=== PATIENT | male | born 1965 | race Hispanic/Latino ===

== ENCOUNTER 2017-08-26 20:38 | Emergency (ER) | payer SELFPAY ==
[2017-08-26 20:43] VITALS: TEMP 97.9
--- NOTE | 2017-08-26 21:02 | ED PDOC ---
HPI: Skin/Bite Injury Time Seen by Provider: 08/26/17 20:47 Chief Complaint (Nursing): Abnormal Skin Integrity Chief Complaint (Provider): rash History Per: Patient History/Exam Limitations: no limitations Onset/Duration Of Symptoms: Days (1 month), Waxing/Waning Current Symptoms Are (Timing): Still Present Quality Of Symptoms: Itching Additional Complaint(s): 52 y/o male here in police custody for evaluation of ongoing rash x 1 month. Patient notes rash to be present in back of neck, folds of elbows, lower abdomen and lower back; states he was evaluated by his primary doctor and given prednisone and antibiotics for dermatitis/cellulitis. Patient states rash improved with medications but once finishing them he notes rash to have come back and admits to excessive itching and is afraid it could get infected again. Denies fever, nausea/vomiting, chills, drainage from sites, known allergen. Past Medical History Reviewed: Historical Data, Nursing Documentation, Vital Signs Vital Signs: Last Vital Signs Temp 97.9 F 08/26/17 20:39 Pulse 61 08/26/17 20:39 Resp 18 08/26/17 20:39 BP 111/70 08/26/17 20:39 Pulse Ox 99 08/26/17 21:05 - Medical History PMH: No Chronic Diseases - Surgical History Surgical History: No Surg Hx - Family History Family History: States: No Known Family Hx - Social History Drugs: Prescription medications (suboxone) - Home Medications Home Medications: Ambulatory Orders Medication Instructions Recorded Hydrocortisone Love 0.2% Cr 1 applic TP BID #1 tube 08/26/17 [Westcort] predniSONE [Prednisone] 20 mg PO DAILY #12 tab 08/26/17 - Allergies Allergies/Adverse Reactions: Allergies Allergy/AdvReac Type Severity Reaction Status Date / Time No Known Allergies Allergy Verified 08/26/17 20:58 Review of Systems ROS Statement: Except As Marked, All Systems Reviewed And Found Negative Skin: Positive for: Rash Physical Exam - Reviewed Nursing Documentation Reviewed: Yes Vital Signs Reviewed: Yes - Physical Exam Appears: Positive for: Well, Non-toxic, No Acute Distress Head Exam: Positive for: ATRAUMATIC, NORMAL INSPECTION, NORMOCEPHALIC Skin: Positive for: Rash (pruritic erythematous papules and vesicles with exudation and crusting noted to flexure surface bilateral elbows, back of neck, lower abdomen, axilla; no drainage, skin warmth noted) ENT: Positive for: Normal ENT Inspection Cardiovascular/Chest: Positive for: Regular Rate, Rhythm Respiratory: Positive for: Normal Breath Sounds Gastrointestinal/Abdominal: Positive for: Normal Exam Back: Positive for: Normal Inspection Extremity: Positive for: Normal ROM Neurologic/Psych: Positive for: Alert, Oriented - ECG O2 Sat by Pulse Oximetry: 99 - Progress ED Course And Treament: prednisone PO, benadryl PO Patient educated on findings, discharged with rx prednisone, westcort advised follow up dermatology continue benadryl/zyrtec daily Return precautions given Disposition - Clinical Impression Clinical Impression: Dermatitis - Patient ED Disposition Is Patient to be Admitted: No Counseled Patient/Family Regarding: Diagnosis, Need For Followup, Rx Given - Disposition Disposition: Routine/Home Disposition Time: 21:42 Condition: GOOD Additional Instructions: Patient medically cleared for incarceration Follow up with [facility] in 2-3 days. Return to ED for worsening/concerning symptoms. Prescriptions: Hydrocortisone Love 0.2% Cr [Westcort] 1 applic TP BID #1 tube predniSONE [Prednisone] 20 mg PO DAILY #12 tab Instructions: Dermatitis Forms: [employer]azo (Wallisian)
[2017-08-26 22:02] VITALS: BP 113/73; PULSE 70; RESP 16; O2SAT 97
== END 2017-08-26 22:04 | disposition home or self-care (01) ==
LOC: H.ER 20:38
DX: L30.9 Dermatitis, unspecified (principal); L03.311 Cellulitis of abdominal wall